=== PATIENT | female | born 2000 | race Two or more races ===

== ENCOUNTER 2021-08-05 09:29 | Emergency (ER) | payer BC, MEDICAID ==
[~2021-08-05] VITALS: Ht 160 cm; Wt 63.5 kg
[2021-08-05 09:55] VITALS: BP 134/75
[2021-08-05 10:27] LABS: Urine Bacteria NONE SEEN /hpf (None Seen); Urine Blood Negative /uL (Negative); Urine Specific Gravity 1.005 (1.001-1.035); Urine WBC 76 /hpf (0 - 5); Urine WBC Clumps PRESENT /hpf (None Seen)
[2021-08-05] MEDS ORDERED: cefTRIAXone SOD 1,000 MG VL IM ONE (11:00)
[2021-08-05] MEDS ORDERED: PROM1SOL4 PO (11:28)
[2021-08-05] MEDS ORDERED: CIPR-173 PO (11:28)
== END 2021-08-05 11:38 | disposition home or self-care (01) ==
LOC: ER 09:29 → EDBD 09:29 → ER 11:38
DX: J18.9 Pneumonia, unspecified organism (principal); N39.0 Urinary tract infection, site not specified
CPT/HCPCS: 71045; 81001; 81025; 96372; 99284; J0696